=== PATIENT | female | born 1940 | race Caucasian/White ===

== ENCOUNTER 2021-07-10 21:49 | Observation (INO) | payer OTHER, MEDICARE ==
[2021-07-11] MEDS ORDERED: Ondansetron ODT 4 MG TAB PO PRN (00:32)
[2021-07-11] MEDS ORDERED: Ondansetron PF 4 MG/2 ML Vial IVP PRN (00:32)
[2021-07-11] MEDS ORDERED: Dextrose 5% in Water 1,000 ML IV PRN (00:32)
[2021-07-11] MEDS ORDERED: Dextrose 50% Abboject 50 ML SYRINGE SLOW IVP PRN (00:32)
[2021-07-11] MEDS ORDERED: hydrALAZINE 20 MG/ML VIAL SLOW IVP PRN (00:32)
[2021-07-11] MEDS ORDERED: traMADol HCl 50 MG TAB PO PRN ×2 (00:36)
[2021-07-11] MEDS ORDERED: Sodium Chloride 0.9% 1,000 ML IV SCH (00:45)
[2021-07-11] MEDS: Acetaminophen 500 MG TAB PO SCH ×2 (01:06→07:17)
[2021-07-11 01:52] VITALS: BMI 25.9
[2021-07-11 04:04] LABS: #Basophils 0.1 thou/uL (0.0-0.2); #Eosinphils 0.3 thou/uL (0.0-0.7); #Lymphocytes 2.3 thou/uL (1.20-3.40); #Monocytes 0.9 thou/uL (0.11-0.59); #Neutrophils 6.4 thou/uL (1.40-6.50); %Basophils 0.9 % (0.0-1.0); %Eosinophils 2.6 % (0.0-10.0); %Lymphocytes 23.2 % (21.0-51.0); %Monocytes 9.1 % (0.0-10.0); %Neutrophils 64.2 % (42.0-75.0); Hemoglobin 11.3 g/dL (12.0-16.0); Mean Corpuscular HGB CONC 32.8 g/dL (32.0-36.0); Mean Corpuscular Hemoglobin 32.3 pg (27.0-31.0); Mean Corpuscular Volume 98.5 fL (78.0-98.0); Mean Platelet Volume 8.6 fL (7.4-10.4); Platelet Count 178 thou/uL (130-400); Red Blood Cell (RBC) Count 3.49 mill/uL (4.20-5.40)
[2021-07-11 04:16] LABS: Anion Gap 15 mmol/L (10-20); BUN (Urea Nitrogen) 23 mg/dL (9.8-20.1); Calc. Creatinine Clearance 35 mL/min (70-130); Calcium 8.2 mg/dL (7.8-10.44); Carbon Dioxide 18 mmol/L (23-31); Chloride 115 mmol/L (98-107); Glucose 95 mg/dL (83-110); Potassium 3.9 mmol/L (3.5-5.1); Sodium 144 mmol/L (136-145)
[2021-07-11 07:01] LABS: Magnesium 2.1 mg/dL (1.6-2.6); Phosphorus 4.3 mg/dL (2.3-4.7)
[2021-07-11] MEDS ORDERED: Famotidine 20 MG TAB PO SCH (09:00)
[2021-07-11 11:40] VITALS: TEMP 97.4
[2021-07-14] MEDS ORDERED: FLU VACC QS2021-22(65YR UP)/PF 240 MCG/0.7 ML SYRINGE IM ONE (09:00)
== END 2021-07-11 12:45 | disposition home or self-care (01) ==
LOC: INTOOBSV 07-11 00:37 → IMCU/EMU 07-11 00:37
PROVIDERS: ADMIT Surgery; ATTEND Surgery
DX: S06.6X0A Traumatic subarachnoid hemorrhage without loss of consciousness, initial encounter (principal); S01.01XA Laceration without foreign body of scalp, initial encounter; I25.10 Atherosclerotic heart disease of native coronary artery without angina pectoris; I10 Essential (primary) hypertension; E03.9 Hypothyroidism, unspecified; K21.9 Gastro-esophageal reflux disease without esophagitis; Z79.02 Long term (current) use of antithrombotics/antiplatelets; Z79.82 Long term (current) use of aspirin; Z79.899 Other long term (current) drug therapy; Z95.5 Presence of coronary angioplasty implant and graft; V89.2XXA Person injured in unspecified motor-vehicle accident, traffic, initial encounter
CPT/HCPCS: 36415; 70450; 80048; 83735; 84100; 85025; J7050